=== PATIENT | female | born 1975 | race African-American/Black ===

== ENCOUNTER 2017-01-11 09:04 | Emergency (ER) | payer SELFPAY ==
[~2017-01-11] VITALS: Ht 170.2 cm; Wt 74.8 kg
[~2017-01-11 09:04] MED LIST: HYDR-2666 PO; LORA0.5T96 PO; SULF1TAB24 PO; no medication
[2017-01-11 09:38] VITALS: BP 130/74
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
[2017-01-11] MEDS ORDERED: IBUPROFEN 600 MG TABLET. PO ONE (10:15)
== END 2017-01-11 10:34 | disposition home or self-care (01) ==
LOC: ER 09:04
DX: S09.90XA Unspecified injury of head, initial encounter (principal); M79.642 Pain in left hand; J45.909 Unspecified asthma, uncomplicated; V49.40XA Driver injured in collision with unspecified motor vehicles in traffic accident, initial encounter; Y93.I9 Activity, other involving external motion; Y92.410 Unspecified street and highway as the place of occurrence of the external cause; Y99.8 Other external cause status
CPT/HCPCS: 99283

== ENCOUNTER 2017-03-10 20:43 | Emergency (ER) | payer SELFPAY ==
[~2017-03-10] VITALS: Ht 172.7 cm; Wt 73.5 kg
[2017-03-10 20:57] VITALS: BP 108/68
[2017-03-10] MEDS ORDERED: PRED20TA PO (21:18)
[2017-03-10] MEDS ORDERED: CYCL10TA2 PO (21:18)
--- NOTE | 2017-03-10 21:18 | PHYS DOC ---
Past Medical History Past Medical History: Asthma, Sciatica Past Surgical History: Additional Past Surgical Histo: x2 Alcohol Use: Rarely Drug Use: None Adult General Chief Complaint Chief Complaint: LOWER EXT PAIN [facility] HPI Patient is a 42 year old male presents emergency department stating that she has had a sciatic pain and discomfort on her right lower back radiates into her right leg. She states that she has had this in the past. She states she's been taken Aleve for the pain for the last few days. She states she has not taken any today. She states that the Aleve as been causing her to have drowsiness. She is complaining that she is not able to sleep at night. He denies any trauma or injury. She states that she just recently started back to work in having to do a lot of standing. Review of Systems Review of Systems Constitutional: Denies fever or chills [] Eyes: Denies change in visual acuity, redness, or eye pain [] HENT: Denies nasal congestion or sore throat [] Respiratory: Denies cough or shortness of breath [] Cardiovascular: No additional information not addressed in HPI [] GI: Denies abdominal pain, nausea, vomiting, bloody stools or diarrhea [] : Denies dysuria or hematuria [] Musculoskeletal: right lower back pain denies joint pain [] Integument: Denies rash or skin lesions [] Neurologic: Denies headache, focal weakness or sensory changes [] Endocrine: Denies polyuria or polydipsia [] Allergies Allergies Allergies Coded Allergies Type Severity Reaction Last Updated Verified No Known Drug Allergies 10/16/13 No Physical Exam Physical Exam Constitutional: Well developed, well nourished, no acute distress, non-toxic appearance. [] HENT: Normocephalic, atraumatic, bilateral external ears normal, oropharynx moist, no oral exudates, nose normal. [] Eyes: PERRLA, EOMI, conjunctiva normal, no discharge. [] Neck: Normal range of motion, no tenderness, supple, no stridor. [] Cardiovascular:Heart rate regular rhythm, no murmur [] Lungs & Thorax: Bilateral breath sounds clear to auscultation [] Skin: Warm, dry, no erythema, no rash. [] Back: No nuchal spine, thoracic spine or lumbar spine tenderness, no crepitus no deformities are no step-offs noted. Patient did have tenderness noted over the sciatic area. Extremities: No tenderness, no cyanosis, no clubbing, ROM intact, no edema. Peripheral pulses on bilateral lower extremities equal bilaterally 2+ cap refill. Neurologic: Alert and oriented X 3, normal motor function, normal sensory function, no focal deficits noted. [] Psychologic: Affect normal, judgement normal, mood normal. [] Current Patient Data Vital Signs Vital Signs Date Time Temp Pulse Resp B/P (MAP) Pulse Ox O2 Delivery O2 Flow Rate FiO2 03/10/17 20:57 98.6 64 18 100 Room Air 98.6 EKG EKG [] Radiology/Procedures Radiology/Procedures [] Course & Med Decision Making Course & Med Decision Making Pertinent Labs and Imaging studies reviewed. (See chart for details) She was recommended to use Aleve [id number] 1 tablet twice a day. She'll be recommended to use ice packs. She'll be provided with a prescription for Flexeril which she was started that this medication will cause drowsiness do not take any be alert and oriented. Patient was also instructed to use ice packs on 20 minutes off 20 minutes several times a day. Recommended her to follow up with her primary care physician next 7-10 days. She'll be provided with prescription for prednisone as well. Since symptoms to return back to emergency department was provided. [] Dragon Disclaimer Dragon Disclaimer This electronic medical record was generated, in whole or in part, using a voice recognition dictation system. Departure Departure Impression: Primary Impression: Back pain with sciatica Disposition: HOME, SELF-CARE Condition: STABLE Referrals: NO PCP (PCP) Patient Instructions: Sciatica with [facility], Sciatica, [id number] Additional Instructions: Activity as tolerated. Medications as prescribed. Flexeril will cause drowsiness do not take any be alert and oriented. Ice packs on 20 minutes off 20 minutes several times a day. Follow-up to primary care physician in the next 7-10 days. Return to the emergency department sign symptoms of become worse. Scripts Prednisone (PREDNISONE) 20 Mg Tablet 40 MG PO DAILY, #10 TAB Prov: GENOVEVA RUBI [employer] 03/10/17 Cyclobenzaprine Hcl (CYCLOBENZAPRINE HCL) 10 Mg Tablet 10 MG PO TID Y for MUSCLE SPASMS, #20 TAB Prov: GENOVEVA RUBI APRN 03/10/17 GENOVEVA RUBI APRN March 10, 2017 21:18
== END 2017-03-10 21:30 | disposition home or self-care (01) ==
LOC: ER 20:43
DX: M54.41 Lumbago with sciatica, right side (principal); J45.909 Unspecified asthma, uncomplicated
CPT/HCPCS: 99283